=== PATIENT | male | born 1940 | race Two or more races ===

== ENCOUNTER 2018-06-23 19:52 | Inpatient (IN) | payer MEDICARE, OTHER ==
[~2018-06-23] VITALS: Ht 167.6 cm; Wt 72.6 kg
[2018-06-23 19:52] VITALS: BP 124/74
--- NOTE | 2018-06-23 19:52 | NUR ---
ED Nurse Note: Patient biba RA 35 c/o resp distress, patient is non a Cpap 15 liters per emd o2 sat was 82% on the field. then 99% on bipap. ermd on bedside. rt on bedside. bipap was given continously to pt. will continue to monitor
[2018-06-23] MEDS ORDERED: Solu-MEDROL 125mg Inj IVP ONE (20:00)
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
[2018-06-23] MEDS: Albuterol ud Inhalation HHN SCH ×2 (20:06→20:24)
[2018-06-23] MEDS: Ipratropium 0.02% Inh Soln 2.5ml UD HHN SCH ×2 (20:06→20:23)
[2018-06-23] MEDS ORDERED: THEOPHYLLI80 MG/153 PO (20:08)
[2018-06-23 20:27] LABS: BASOPHILS % (AUTO) 0.7 % (0.0-2.0); EOSINOPHILS % (AUTO) 0.8 % (0.0-3.0); HEMATOCRIT 47.5 % (42.0-52.0); HEMOGLOBIN 14.5 G/DL (14.2-18.0); LYMPHOCYTES % (AUTO) 36.5 % (20.0-45.0); MEAN CORPUSCULAR VOLUME 83 FL (80-99); MONOCYTES % (AUTO) 8.9 % (1.0-10.0); NEUTROPHILS % (AUTO) 53.1 % (45.0-75.0); PLATELET COUNT 201 K/UL (150-450); RED BLOOD COUNT 5.73 M/UL (4.70-6.10); RED CELL DISTRIBUTION WIDTH 15.5 % (11.6-14.8); WHITE BLOOD COUNT 10.4 K/UL (4.8-10.8)
[2018-06-23 20:34] VITALS: BP 97/62
[2018-06-23 20:41] LABS: ANION GAP 6 mmol/L (5-15); BLOOD UREA NITROGEN 13 mg/dL (7-18); CALCIUM 10.6 MG/DL (8.5-10.1); CARBON DIOXIDE 32 MMOL/L (21-32); CHLORIDE 108 MMOL/L (98-107); POTASSIUM 4.2 MMOL/L (3.5-5.1); SODIUM 146 MMOL/L (136-145)
[2018-06-23 20:50] LABS: APPEARANCE,URINE SLIGHTLY CLOUDY; BILIRUBIN, URINE NEGATIVE (NEGATIVE); GLUCOSE, URINE (UA) NEGATIVE (NEGATIVE); KETONES,URINE NEGATIVE (NEGATIVE); LEUKOCYTE ESTERASE ,URINE 2+ (NEGATIVE); NITRITE,URINE NEGATIVE (NEGATIVE); PH,URINE 6 (4.5-8.0); PROTEIN,URINE 2+ (NEGATIVE); UROBILINOGEN,URINE NORMAL MG/DL (0.0-1.0)
[2018-06-23 20:53] LABS: COLOR,URINE YELLOW
[2018-06-23 20:58] LABS: ALANINE AMINOTRANSFERASE 44 U/L (12-78); ALBUMIN 3.7 G/DL (3.4-5.0); ALKALINE PHOSPHATASE 103 U/L (46-116); ASPARTATE AMINO TRANSFERASE 29 U/L (15-37); BILIRUBIN,TOTAL 0.5 MG/DL (0.2-1.0)
[2018-06-23] MEDS ORDERED: Azithromycin 500 MG in D5W 275 ML IVPB ONE (21:00)
[2018-06-23] MEDS ORDERED: cefTRIAXone 1 GM in NS 55 ML IVPB ONE (21:15)
[2018-06-23 23:00] VITALS: BP 97/62
[2018-06-24] VITALS (7 sets, daily range): BP systolic 104–150; BP diastolic 52–84
--- NOTE | 2018-06-24 01:36 | NUR ---
ED Nurse Note: pt on gurney, still on bipap @30% fiO2, pt vital sign stable. pt has no complaint of respiratory distress. will continue to monitor.
--- NOTE | 2018-06-24 04:23 | NUR ---
ED Nurse Note: pt sleeping on gurney, still on bipap @30%fio2, pt not in distress. vital sign within normal limit. will continue to monitor.
--- NOTE | 2018-06-24 05:27 | NUR ---
ED Nurse Note: pt was admitted to hospital, report given to Fredy lee.
--- NOTE | 2018-06-24 05:40 | NUR ---
ED Nurse Note: pt was tranfered to sdu 235 with all belongings, pt accompanied by rn, rt and tech with monitor.
--- NOTE | 2018-06-24 05:50 | NUR ---
NURSE NOTES: Report received from NILDA Lopez. Pt was transferred via hospital bed. A/O x4. Denies any pain at this time. Belonging checked with ER nurse. brim raiser applied. VS, T 97.8, P 83, R 24, BP 122/74, SpO2 99%. On NC 2L. Pt had bipap in ER but on the unit, pt refused to have the mask on. No signs of SOB noted at this time. Bed in the lowest position. Call light within reach. Will continue to monitor.
--- NOTE | 2018-06-24 07:40 | NUR ---
HAND-OFF: Report given to NILDA Chan. No acute distress noted at this time.
--- NOTE | 2018-06-24 07:45 | NUR ---
NURSE NOTES: Report received from Fredy Cage RN.Pt is a new admission fr ED ,awake,alert sitting up on bed,noted no resp distress on 2L NC,SR on the monitor,denies any c/o pain, IV site to JIM intact skin warm and dry SR up x2,bed lock in lowest position witll continue with plans of care.
[2018-06-24] MEDS ORDERED: THEOPHYLLINE A100 MG ORAL (08:24)
--- NOTE | 2018-06-24 08:40 | NUR ---
NURSE NOTES: Dr Issa at bedside,discussed with pt re plans of care.Pt continue to refuse Bipap.Pt appears okay with 2l NC no resp distress presented,O2 sat 98%.
[2018-06-24] MEDS ORDERED: Theophylline ER 100mg ORAL SCH ×2 (09:00→21:00)
[2018-06-24] MEDS: Docusate 100mg cap ORAL SCH ×2 (09:42→21:04)
[2018-06-24] MEDS: Heparin 5000 units/ml inj SUBQ SCH ×2 (09:45→21:06)
[2018-06-24] MEDS: Albuterol/Ipratropium 3ml neb HHN SCH ×4 (10:11→23:17)
--- NOTE | 2018-06-24 10:34 | Diagnostic Imaging Report ---
Indication: Shortness of breath Technique: One view of the chest Comparison: none Findings: Reticular markings at both lung bases are probably chronic. The lungs and pleural spaces otherwise clear. Lungs appear somewhat hyperinflated. The heart size is normal. Impression: Probably chronic fibrotic changes at both lung bases. No definite acute process Hyperinflation, likely COPD
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
[2018-06-24] MEDS: Solu-MEDROL 40mg Inj IVP SCH ×2 (15:13→21:04)
--- NOTE | 2018-06-24 17:00 | NUR ---
NURSE NOTES: Pt stable noted no resp distress continue on 2L NC O2 sat 99%
--- NOTE | 2018-06-24 18:24 | NUR ---
CASE MANAGEMENT: INITIAL REVIEW 77 YO Tigist GONZALEZ FROM HOME CC: DYSPNEA PMHx: COPD SI:COPD EXACERBATION T: N/A HR 130 RR 26 B/P 155/100 SATS 95% ON VENTURI MASK FiO2 15 NA 146 CL 108 LACTIC 2.5 CA 10.6 TROPONIN 0.073 AND 0.076 BNP 706 ABGs pH 7.309 pCO2 62.2 pO2 144.2 HCO3 30.5 BE 2.6 IS: duo neb hhn x1 solu medrol iv x1 azithromycin iv x1 CEFTRIAXONE IV X1 PATIENT ADMITTED TO [facility] 06/23/2018 @ 8 DCP: PATIENT TO BE DISCHARGED TO HOME ONCE MEDICALLY CLEARED Addendum: 06/26/18 at 0754 by Jenny Magdaleno CM INTERQUAL MET FOR ACUTE
--- NOTE | 2018-06-24 19:32 | NUR ---
HAND-OFF: Report given to Ashley Landaverde RN.
--- NOTE | 2018-06-24 19:35 | NUR ---
NURSE NOTES: Report received from NILDA Cortez. Pt A/Ox4. Ambulatory at home but currently on bedrest. monitoring engineer shows SR. Pt refused Bipap so currently on 2L NC. O2 saturation WNL. Pt on a regular diet. Urinal at bedside. No skin issues noted. Pt has a LUA18g patent and asymptomatic. Order present to transfer patient to telemetry unit. Will continue to monitor and with patients plan of care.
[2018-06-24] MEDS ORDERED: Azithromycin 250mg tab ORAL SCH (21:00)
[2018-06-25] VITALS: BP 142/77
[2018-06-25] MEDS: Albuterol/Ipratropium 3ml neb HHN SCH ×3 (03:35→11:00)
[2018-06-25 04:00] VITALS: BP 120/61
[2018-06-25] MEDS: Solu-MEDROL 40mg Inj IVP SCH (06:03)
[2018-06-25 06:14] LABS: BASOPHILS % (AUTO) 0.2 % (0.0-2.0); HEMATOCRIT 38.1 % (42.0-52.0); HEMOGLOBIN 12.2 G/DL (14.2-18.0); LYMPHOCYTES % (AUTO) 10.3 % (20.0-45.0); MEAN CORPUSCULAR VOLUME 82 FL (80-99); MONOCYTES % (AUTO) 5.7 % (1.0-10.0); NEUTROPHILS % (AUTO) 83.8 % (45.0-75.0); PLATELET COUNT 153 K/UL (150-450); RED BLOOD COUNT 4.65 M/UL (4.70-6.10); RED CELL DISTRIBUTION WIDTH 15.4 % (11.6-14.8); WHITE BLOOD COUNT 9.3 K/UL (4.8-10.8)
[2018-06-25 06:39] LABS: ANION GAP 3 mmol/L (5-15); BLOOD UREA NITROGEN 14 mg/dL (7-18); CALCIUM 9.7 MG/DL (8.5-10.1); CARBON DIOXIDE 33 MMOL/L (21-32); CHLORIDE 106 MMOL/L (98-107); CREATININE 0.9 MG/DL (0.55-1.30); POTASSIUM 4.6 MMOL/L (3.5-5.1); SODIUM 142 MMOL/L (136-145)
--- NOTE | 2018-06-25 07:30 | NUR ---
TRANSFER TO FLOOR: Patient transferred to Tele from [facility] via hospital bed. Report received from Ashley MUNGUIA. Pt is awake, alert, oriented x4. Pt's belonging's list checked and signed with the transferring nurse in front of the pt. Pt is on 2L of oxygen via nasal cannula, with no respiratory distress. Denies pain. Skin is intact. IV access on left UA #18G, saline lock, patent/intact. Pt uses a walker at home, currently on bedrest, with urinal at bedside. Call light is placed within easy reach, bed in lowest position, two side rails up, brakes engaged, alarm on.
[2018-06-25 08:00] VITALS: BP 121/55
--- NOTE | 2018-06-25 08:30 | NUR ---
NURSE NOTES: Per MD order, pt's oxygen saturation was monitor while ambulating the pt inside his room with two nurse assist. Pt took 20 steps, while receiving oxygen at 3L (same level he receiving while ambulating at home), sP02 fluctuated from 94-97%, with HR from 90's to 120's. MD notified. Pt is currently resting in bed. No complaints of shortness of breath at this time.
[2018-06-25] MEDS ORDERED: THEOPHYLLINE A100 MG ORAL (08:57)
[2018-06-25] MEDS ORDERED: ZITHROMAX250 MG ORAL (08:57)
[2018-06-25] MEDS ORDERED: Heparin 5000 units/ml inj SUBQ SCH (09:00)
[2018-06-25] MEDS ORDERED: Theophylline ER 100mg ORAL SCH (09:00)
[2018-06-25] MEDS ORDERED: Docusate 100mg cap ORAL SCH (09:00)
--- NOTE | 2018-06-25 09:00 | Discharge Summary ---
Discharge Summary Hospital Course Date of Admission Jun 23, 2018 at 21:25 Date of Discharge 06/25/18 Admitting Diagnosis copd exacerbation HPI Christiano Mason is a 77 year old male who was admitted on Jun 23, 2018 at 21:25 for Chronic Obstructive Pulmonary Disease Exacerbation Hospital Course #COPD exacerbation #Chronic respiratory failure -treated with Solu-Medrol, azithromycin and Duoneb with improvement in wheeze -No evidence of pneumonia -Discharge home with prednisone taper #Mildly elevated troponin and BNP #Possible demand ischemia -repeat labs -likely demand ischemia -Outpatient follow up with PCP next week Discharge Discharge Disposition Patient was discharged to Anand Tony MD Jun 25, 2018 09:00
--- NOTE | 2018-06-25 11:00 | NUR ---
NURSE NOTES: Pt is ready to be discharged per MD order. Spoke to pt's Christy over the phone. Per pt's , pt will be picked up in the afternoon.
--- NOTE | 2018-06-25 11:21 | NUR ---
*-* DISCHARGE PLANNING *-* PATIENTHAS BEEN REFERRED TO: [facility] P:[phone] F:[phone] S/W RADHA
--- NOTE | 2018-06-25 13:40 | NUR ---
NURSE NOTES: Pt discharged home per MD order. Tele monitor removed and returned. IV access removed. Discharge instructions given to pt. Pt's belonging's list checked and signed with pt. Pt left facility in stable condition, via private vehicle.
[2018-06-25] MEDS ORDERED: Solu-MEDROL 40mg Inj IVP SCH (14:00)
[2018-06-25] MEDS ORDERED: Azithromycin 250mg tab ORAL SCH (21:00)
--- NOTE | 2018-06-26 16:16 | Cardiology Report ---
APPROVED REPORT EKG Measurement Heart [id number] Sinus tachycardia Minimal voltage criteria for LVH, may be normal variant Anterior infarct, age undetermined Abnormal ECG
== END 2018-06-25 13:40 | disposition home or self-care (01) | DRG 191 ==
LOC: EDBD 19:52 → EMR 20:00 → EDBEDREQ 20:17 → 2W 21:25 → EDBEDREQ 06-24 05:15 → 2E 06-25 06:53
PROC: 5A09357 Assistance with Respiratory Ventilation, Less than 24 Consecutive Hours, Continuous Positive Airway Pressure (ICD-10-PCS; principal; 2018-06-23)
DX: J44.1 Chronic obstructive pulmonary disease with (acute) exacerbation (principal); J96.10 Chronic respiratory failure, unspecified whether with hypoxia or hypercapnia; I24.8 Other forms of acute ischemic heart disease; Z87.891 Personal history of nicotine dependence; Z99.81 Dependence on supplemental oxygen
CPT/HCPCS: 36415; 36600; 71045; 80048; 80053; 81003; 82803; 83605; 83880; 84484; 85025; 85610; 85730; 87040; 87086; 87181; 93005; 94640; 94660; 94664; 96365; 96368; 96375; 99291; J7620